=== PATIENT | male | born 1965 | race Two or more races ===

== ENCOUNTER 2017-07-02 16:34 | Emergency (ER) | payer OTHER ==
[~2017-07-02] VITALS: Ht 185.4 cm; Wt 88.6 kg
[2017-07-02 16:34] VITALS: BP 137/87
[2017-07-02] MEDS ORDERED: ADV500INH (16:41)
[2017-07-02] MEDS ORDERED: IPRASOL4 (16:41)
== END 2017-07-02 21:28 | disposition left against medical advice (07) ==
LOC: M ED 16:34
DX: R10.9 Unspecified abdominal pain (principal); Z53.21 Procedure and treatment not carried out due to patient leaving prior to being seen by health care provider

== ENCOUNTER → 2017-07-02 | Outpatient (CLI) | payer OTHER ==
[~2017-07-02] MED LIST: ADV500INH; IPRASOL4
--- NOTE | 2017-07-02 16:29 | REP ---
ABDOMINAL SERIES: Supine and erect views of the abdomen demonstrate no evidence of free intraperitoneal air and no evidence of bowel obstruction. No abnormal calcifications are seen. There are minor degenerative changes of the spine. An accompanying view of the chest demonstrates no acute infiltrate. Cardiomediastinal silhouette is unremarkable. IMPRESSION: Negative abdominal series. Signed by Trever Chambers MD 07/02/2017 05:23 P
== END ==
LOC: M LRY 15:02
PROVIDERS: ATTEND Nurse Practitioner Family
DX: R10.84 Generalized abdominal pain (principal)

== ENCOUNTER → 2017-09-21 | Day surgery (SDC) | payer OTHER ==
[~2017-09-21] VITALS: Ht 185.4 cm; Wt 85.3 kg
[~2017-09-21] MED LIST changes: +AZEL1SPR3; +CLAR10CA3 PO; +LIDOCAINE 2% INJ 100 MG/5 ML SDV (FOR ANES.) As Ordered ONE; +LR 1,000 ML IV ONE; +MULT1TAB28 PO; +PROPOFOL 200 MG/20 ML VIAL As Ordered ONE
--- NOTE | 2017-09-21 10:56 | ROOR ---
Patient Name: Ameya Davis Procedure Date: 09/21/2017 10:12 AM Date of : 1965 Age: 52 Room: [facility] Gender: Male Note Status: Finalized Procedure: Colonoscopy Indications: Screening in patient at increased risk: Colorectal cancer in father 60 or older, This is the patient's first colonoscopy Providers: Ilia Shabazz MD Referring MD: KRISTIN SULTANA MD Requesting Provider: Medicines: Monitored Anesthesia Care Complications: No immediate complications. Procedure: Pre-Anesthesia Assessment: - Prior to the procedure, a History and Physical was performed, and patient medications and allergies were reviewed. The patient is competent. The risks and benefits of the procedure and the sedation options and risks were discussed with the patient. All questions were answered and informed consent was obtained. Patient identification and proposed procedure were verified by the physician, the nurse and the field agronomist in the procedure room. Mental Status Examination: alert and oriented. Airway Examination: normal oropharyngeal airway and neck mobility. CV Examination: regular rate and rhythm. Prophylactic Antibiotics: The patient does not require prophylactic antibiotics. Prior Anticoagulants: The patient has taken no previous anticoagulant or antiplatelet agents. ASA Grade Assessment: I - A normal, healthy patient. After reviewing the risks and benefits, the patient was deemed in satisfactory condition to undergo the procedure. The anesthesia plan was to use monitored anesthesia care (MAC). Immediately prior to administration of medications, the patient was re-assessed for adequacy to receive sedatives. The heart rate, respiratory rate, oxygen saturations, blood pressure, adequacy of pulmonary ventilation, and response to care were monitored throughout the procedure. The physical status of the patient was re-assessed after the procedure. The Colonoscope was introduced through the anus and advanced to the cecum, identified by appendiceal orifice and ileocecal valve. The colonoscopy was performed without difficulty. The patient tolerated the procedure well. The quality of the bowel preparation was good. Findings: The perianal and digital rectal examinations were normal. A 15 mm polyp was found at 35 cm proximal to the anus. The polyp was pedunculated. The polyp was removed with a hot snare. Resection and retrieval were complete. The pathology specimen was placed into Bottle Number 1. Estimated blood loss: none. A 6 mm polyp was found at 30 cm proximal to the anus. The polyp was multi-lobulated. The polyp was removed with a hot snare. Resection and retrieval were complete. The pathology specimen was placed into Bottle Number 2. Estimated blood loss: none. Multiple medium-mouthed diverticula were found in the sigmoid colon. Impression: - One 15 mm polyp at 35 cm proximal to the anus, removed with a hot snare. Resected and retrieved. - One 6 mm polyp at 30 cm proximal to the anus, removed with a hot snare. Resected and retrieved. - Diverticulosis in the sigmoid colon. Recommendation: - Discharge patient to home. - Resume previous diet. - Continue present medications. - Await pathology results. - Telephone endoscopist for pathology results in 1 week. Ilia Shabazz MD 09/21/2017 10:56:33 AM Number of Addenda: 0 Note Initiated On: 09/21/2017 10:12 AM Estimated Blood Loss: Estimated blood loss: none.
[2017-09-21 11:20] VITALS: BP 119/80
== END | disposition home or self-care (01) ==
LOC: M OPP 08:23
PROVIDERS: ATTEND Surgery
DX: Z12.11 Encounter for screening for malignant neoplasm of colon (principal); Z80.0 Family history of malignant neoplasm of digestive organs; D12.5 Benign neoplasm of sigmoid colon; K57.30 Diverticulosis of large intestine without perforation or abscess without bleeding; M19.90 Unspecified osteoarthritis, unspecified site; J45.909 Unspecified asthma, uncomplicated; G47.30 Sleep apnea, unspecified; F17.220 Nicotine dependence, chewing tobacco, uncomplicated; Z79.899 Other long term (current) drug therapy

== ENCOUNTER → 2019-01-16 | Outpatient (REF) | payer OTHER ==
[~2019-01-16] MED LIST changes: +IPRA0.00; -IPRASOL4; -LIDOCAINE 2% INJ 100 MG/5 ML SDV (FOR ANES.) As Ordered ONE; -LR 1,000 ML IV ONE; -PROPOFOL 200 MG/20 ML VIAL As Ordered ONE
[2019-01-16 12:08] LABS: BASO # 0.1 10^3/uL (0.0-0.2); EOS # 0.6 10^3/uL (0.0-0.50); EOS % 8.4 % (0.0-3.0); HEMATOCRIT 47.8 % (42.0-52.0); HEMOGLOBIN 16.5 g/dl (13.5-17.5); LYMPH # 1.6 10^3/uL (1.5-4.5); LYMPH % 22.6 % (24.0-44.0); MEAN CORPUSCULAR HEMOGLOBIN 31.8 pg (27.0-33.0); MEAN CORPUSCULAR HGB CONC 34.5 g/dl (32.0-36.5); MEAN CORPUSCULAR VOLUME 92.1 fl (80.0-96.0); MONO # 0.8 10^3/uL (0.0-0.8); MONO % 11.7 % (0.0-5.0); NEUTROPHILS # 3.9 10^3/uL (1.8-7.7); PLATELET COUNT, AUTOMATED 217 10^3/uL (150-450); RED BLOOD COUNT 5.19 10^6/uL (4.30-6.10)
[2019-01-16 12:23] LABS: ALBUMIN 3.8 GM/DL (3.2-5.2); ALT/SGPT 49 U/L (12-78); BILIRUBIN,TOTAL 0.4 MG/DL (0.2-1.0); BLOOD UREA NITROGEN 17 MG/DL (7-18); CALCIUM LEVEL 8.5 MG/DL (8.5-10.1); CARBON DIOXIDE LEVEL 28 MEQ/L (21-32); CHLORIDE LEVEL 107 MEQ/L (98-107); CHOLESTEROL LEVEL 179 MG/DL (<200); CHOLESTEROL RISK RATIO 4.162 (<5); CREATININE FOR GFR 1.03 MG/DL (0.70-1.30); GLOMERULAR FILTRATION RATE > 60.0 (>56); GLUCOSE, FASTING 98 MG/DL (70-100); HDL CHOLESTEROL 43 MG/DL (>40); LDL CHOLESTEROL 97 MG/DL (<100); NON-HDL-C 136 MG/DL; POTASSIUM SERUM 3.8 MEQ/L (3.5-5.1); SODIUM LEVEL 139 MEQ/L (136-145); TOTAL PROTEIN 6.9 GM/DL (6.4-8.2); TRIGLYCERIDES LEVEL 197 MG/DL (<150)
== END ==
LOC: M LABDRAW1 11:37
PROVIDERS: ATTEND Physician Assistant
DX: R53.83 Other fatigue (principal); J45.30 Mild persistent asthma, uncomplicated

== ENCOUNTER → 2019-03-15 | Outpatient (CLI) | payer OTHER ==
--- NOTE | 2019-03-15 17:03 | REP ---
REASON: Dyspnea. COMPARISON: 06/26/2013 the latest prior. Mild patchy opacities have developed in the left lung base obscuring the left CP angle. The right CP angle is clear. The heart is borderline. The osseous structure is stable and intact. IMPRESSION: Patchy left basilar opacities, as described above, of uncertain etiology. I would recommend followup with chest CT. Electronically Signed by Meño Byrnes DO 03/16/2019 04:23 P
== END ==
LOC: M SMT 15:55
PROVIDERS: ATTEND Nurse Practitioner Family
DX: R91.8 Other nonspecific abnormal finding of lung field (principal); R06.00 Dyspnea, unspecified

== ENCOUNTER → 2019-03-15 | Outpatient (CLI) | payer OTHER ==
[2019-03-15 18:39] LABS: FREE T4 0.98 NG/DL (0.76-1.46); THYROID PEROXIDASE ANTIBODY > 1300.0 U/ML (<60.0)
== END ==
LOC: M SMT 15:50
PROVIDERS: ATTEND Physician Assistant
DX: E03.9 Hypothyroidism, unspecified (principal)

== ENCOUNTER → 2019-03-29 | Outpatient (CLI) | payer OTHER ==
--- NOTE | 2019-03-29 14:59 | REP ---
CT of the chest without IV contrast: Comparison is 10/28/2007. Addition there is a recent PA and lateral plain film dated 03/15/2019 that identified patchy left basilar opacities. There are no infiltrates. There are no pleural effusions. There are no masses. There are no nodules. 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 There are small subpleural blebs adjacent to this synostosis. The There is no mediastinal lymph node enlargement. The azygos node is normal size measuring up to 10 mm short axis. There is no axillary lymph node enlargement. The unenhanced thoracic aorta is unremarkable. The cardiac size is normal. The visualized upper abdominal contents are unremarkable. Impression: There are no infiltrates or pleural effusions. There are no masses or nodules. 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 There are small blebs adjacent to this anastomosis. Electronically Signed by Trever Merritt MD 03/29/2019 02:51 P
== END ==
LOC: M RAD 14:19
PROVIDERS: ATTEND Nurse Practitioner Family
DX: R06.00 Dyspnea, unspecified (principal); R91.8 Other nonspecific abnormal finding of lung field

== ENCOUNTER → 2019-09-22 | Outpatient (REF) | payer OTHER ==
[2019-09-22 18:38] LABS: FREE T4 0.96 NG/DL (0.76-1.46); THYROID STIMULATING HORMONE 3.03 uIU/ML (0.358-3.740)
== END ==
LOC: M LABDRAW1 15:32
PROVIDERS: ATTEND Physician Assistant
DX: E03.9 Hypothyroidism, unspecified (principal)

== ENCOUNTER → 2019-10-19 | Outpatient (CLI) | payer OTHER ==
[~2019-10-19] MED LIST changes: +METHACHOLINE KIT (J7674) INH ONE
--- NOTE | 2019-10-19 14:20 | PFTRPT ---
Site: [facility], [address] [place], [place], [address] ID: [id number] Name: SURYA SULLIVAN Visit Date: 10/19/2019 Second ID: [id number] Referring Doctor: SANDRITA SCOTT Reviewing Doctor: Lenin Hernandez MD [employer] Consultant: Vangie TEIXEIRA RRT Age: 54 : 1965 Sex: Male Race: Height: 73.00 Inches Weight: 198.00 Lbs BSA: 2.14 Order IDs: [id number] Requested Test(s): <RESP-PFT.METH CHAL> Diagnosis: R05 of albuterol for postbronchodilator. Review Status: Not Reviewed Pre-Bronch Post-Bronch Pred Actual %Pred Actual %Chng SPIROMETRY FVC (L) 5.50 4.75 86 4.54 -4 FEV1 (L) 4.23 2.51 59 2.41 -3 FEV1/FVC (%) 77 53 68 53 FEF 25% (L/sec) 7.91 2.82 35 2.71 -4 FEF 50% (L/sec) 4.66 1.44 30 1.30 -9 FEF 75% (L/sec) 1.66 0.50 30 0.46 -8 FEF 25-75% (L/sec) 3.62 1.20 33 1.07 -10 FEF Max (L/sec) 10.38 5.71 55 4.37 -23 FIVC (L) 4.55 4.12 -9 FIF 50% (L/sec) 4.91 5.65 115 7.10 25 FIF Max (L/sec) 5.92 7.14 20 Expiratory Time (sec) 7.94 6.69 -15 Back Extrap Vol (L) 0.06 0.14 132 Time To FEFmax (sec) 0.063 0.116 83
== END ==
LOC: M CARPUL 13:16
PROVIDERS: ATTEND Nurse Practitioner Family
DX: R05 Cough (principal)
CPT/HCPCS: 94070; J7674

== ENCOUNTER → 2019-10-24 | Outpatient (CLI) | payer OTHER ==
[~2019-10-24] MED LIST changes: -METHACHOLINE KIT (J7674) INH ONE
== END ==
LOC: M RAD 14:12
PROVIDERS: ATTEND Nurse Practitioner Family
DX: R91.8 Other nonspecific abnormal finding of lung field (principal)

== ENCOUNTER → 2019-11-22 | Outpatient (REF) | payer OTHER ==
[2019-11-22 16:02] LABS: MUCIN CLOT TEST NO CLOT (4+)
[2019-11-22 16:12] LABS: SOURCE, BODY FLUID GLUCOSE LFT KNEE; SOURCE, BODY FLUID URIC ACID LFT KNEE; URIC ACID, BODY FLUID 0.9 MG/DL (NOT ESTABLISHED)
[2019-11-22 16:17] LABS: SOURCE, BODY FLUID LFT KNEE; SYNOVIAL FLUID COLOR PINK (YELLOW)
[2019-11-22 16:49] LABS: CRYSTALS, BODY FLUID NONE SEEN (NONE SEEN); SOURCE, BODY FLUID CRYSTALS LFT KNEE
[2019-11-23 08:20] LABS: BODY FLUID RHEUMATOID SCREEN NEGATIVE (NEGATIVE)
== END ==
LOC: M LAB REF 15:29
PROVIDERS: ATTEND Physician Assistant
DX: M25.462 Effusion, left knee (principal)

== ENCOUNTER → 2019-11-22 | Outpatient (CLI) | payer OTHER ==
[2019-11-22 12:35] LABS: BASO # 0.1 10^3/uL (0.0-0.2); BASO % 0.4 % (0.0-1.0); EOS # 0.3 10^3/uL (0.0-0.5); EOS % 2.1 % (0.0-3.0); HEMATOCRIT 50.1 % (42.0-52.0); HEMOGLOBIN 17.5 g/dl (13.5-17.5); LYMPH # 1.2 10^3/uL (1.5-5.0); LYMPH % 7.9 % (24.0-44.0); MEAN CORPUSCULAR HEMOGLOBIN 32.6 pg (27.0-33.0); MEAN CORPUSCULAR HGB CONC 34.9 g/dl (32.0-36.5); MEAN CORPUSCULAR VOLUME 93.3 fl (80.0-96.0); MONO # 1.9 10^3/uL (0.0-0.8); MONO % 13.4 % (0.0-5.0); NEUTROPHILS % 75.9 % (36.0-66.0); PLATELET COUNT, AUTOMATED 219 10^3/uL (150-450); RED BLOOD COUNT 5.37 10^6/uL (4.30-6.10); WHITE BLOOD COUNT 14.5 10^3/uL (4.0-10.0)
[2019-11-22 12:56] LABS: ERYTHROCYTE SEDIMENTATION RATE 6 mm/hr (0-20)
== END ==
LOC: M WUC 09:58
PROVIDERS: ATTEND Physician Assistant
DX: M25.562 Pain in left knee (principal)

== ENCOUNTER → 2020-04-02 | Outpatient (CLI) | payer OTHER ==
[2020-04-02 11:09] LABS: BASO # 0.1 10^3/uL (0.0-0.2); BASO % 0.9 % (0.0-1.0); EOS # 0.6 10^3/uL (0.0-0.5); EOS % 9.5 % (0.0-3.0); HEMATOCRIT 49.5 % (42.0-52.0); HEMOGLOBIN 17.4 g/dl (13.5-17.5); LYMPH # 1.5 10^3/uL (1.5-5.0); LYMPH % 22.9 % (24.0-44.0); MEAN CORPUSCULAR HEMOGLOBIN 32.2 pg (27.0-33.0); MEAN CORPUSCULAR HGB CONC 35.2 g/dl (32.0-36.5); MEAN CORPUSCULAR VOLUME 91.5 fl (80.0-96.0); MONO # 0.7 10^3/uL (0.0-0.8); NEUTROPHILS # 3.7 10^3/uL (1.5-8.5); NEUTROPHILS % 55.4 % (36.0-66.0); PLATELET COUNT, AUTOMATED 215 10^3/uL (150-450); RED BLOOD COUNT 5.41 10^6/uL (4.30-6.10); WHITE BLOOD COUNT 6.7 10^3/uL (4.0-10.0)
[2020-04-02 11:43] LABS: ALBUMIN 3.8 GM/DL (3.2-5.2); ALT/SGPT 58 U/L (12-78); BILIRUBIN,TOTAL 0.6 MG/DL (0.2-1.0); BLOOD UREA NITROGEN 14 MG/DL (7-18); CALCIUM LEVEL 8.9 MG/DL (8.5-10.1); CARBON DIOXIDE LEVEL 27 MEQ/L (21-32); CHLORIDE LEVEL 106 MEQ/L (98-107); CHOLESTEROL LEVEL 175 MG/DL (<200); CHOLESTEROL RISK RATIO 3.977 (<5); CREATININE FOR GFR 0.92 MG/DL (0.70-1.30); FREE T4 0.99 NG/DL (0.76-1.46); GLOMERULAR FILTRATION RATE > 60.0 (>56); GLUCOSE, FASTING 81 MG/DL (70-100); HDL CHOLESTEROL 44 MG/DL (>40); LDL CHOLESTEROL 103 MG/DL (<100); NON-HDL-C 131 MG/DL; POTASSIUM SERUM 4.4 MEQ/L (3.5-5.1); SODIUM LEVEL 139 MEQ/L (136-145); TOTAL PROTEIN 7.1 GM/DL (6.4-8.2); TRIGLYCERIDES LEVEL 138 MG/DL (<150)
== END ==
LOC: M WUC 08:07
PROVIDERS: ATTEND Physician Assistant
DX: E03.9 Hypothyroidism, unspecified (principal); J45.30 Mild persistent asthma, uncomplicated; E78.2 Mixed hyperlipidemia

== ENCOUNTER → 2020-10-30 | Outpatient (CLI) | payer OTHER ==
--- NOTE | 2020-10-30 08:56 | REP ---
INDICATION: MODERATE PERSISTENT ASTHMA COMPARISON: 03/15/2019 TECHNIQUE: PA and lateral. FINDINGS: The mediastinum and cardiac silhouette are normal. The lung alvarado demonstrate chronic stable changes without acute consolidation, effusion, or pneumothorax. The skeletal structures are intact and normal. IMPRESSION: No focal consolidation or effusion appreciated. <Electronically signed by Javier Tran > 10/30/20 [id number]
== END ==
LOC: M WUC 08:06
PROVIDERS: ATTEND Nurse Practitioner Family
DX: J45.40 Moderate persistent asthma, uncomplicated (principal)

== ENCOUNTER → 2024-04-03 | Outpatient (CLI) | payer OTHER ==
[2024-04-03 08:37] LABS: BASO # 0.1 10^3/uL (0.0-0.2); BASO % 0.9 % (0.0-1.0); EOS # 0.6 10^3/uL (0.0-0.5); HEMATOCRIT 48.1 % (42.0-52.0); HEMOGLOBIN 16.7 g/dl (13.5-17.5); LYMPH # 1.6 10^3/uL (1.5-5.0); MEAN CORPUSCULAR HEMOGLOBIN 31.8 pg (27.0-33.0); MEAN CORPUSCULAR HGB CONC 34.7 g/dl (32.0-36.5); MEAN CORPUSCULAR VOLUME 91.6 fl (80.0-96.0); MONO # 0.9 10^3/uL (0.0-0.8); MONO % 12.3 % (2.0-8.0); NEUTROPHILS # 4.3 10^3/uL (1.5-8.5); NEUTROPHILS % 57.5 % (36.0-66.0); PLATELET COUNT, AUTOMATED 206 10^3/uL (150-450); RED BLOOD COUNT 5.25 10^6/uL (4.30-6.10); WHITE BLOOD COUNT 7.5 10^3/uL (4.0-10.0)
[2024-04-03 09:02] LABS: ALBUMIN 3.7 G/DL (3.2-5.2); ALKALINE PHOSPHATASE 86 U/L (46-116); ALT/SGPT 47 U/L (7.0-40); AST/SGOT 14 U/L (<34); BILIRUBIN,TOTAL 0.7 MG/DL (0.3-1.2); BLOOD UREA NITROGEN 13 MG/DL (9-23); CALCIUM LEVEL 9.1 MG/DL (8.5-10.1); CARBON DIOXIDE LEVEL 28 MMOL/L (20-31); CHLORIDE LEVEL 107 MMOL/L (98-107); CHOLESTEROL LEVEL 170 MG/DL (<200); CHOLESTEROL RISK RATIO 4.22 (<5); CREATININE FOR GFR 1.02 MG/DL (0.70-1.30); GLOMERULAR FILTRATION RATE > 60.0 (>56); GLUCOSE, FASTING 99 MG/DL (60-100); HDL CHOLESTEROL 40.2 MG/DL (>40); NON-HDL-C 129.8 MG/DL; SODIUM LEVEL 141 MMOL/L (136-145); TOTAL PROTEIN 6.6 G/DL (5.7-8.2); TRIGLYCERIDES LEVEL 129 MG/DL (<150)
[2024-04-03 09:04] LABS: THYROID STIMULATING HORMONE 5.215 uIU/ML (0.55-4.78)
[2024-04-03 09:15] LABS: TOTAL 25(OH) VITAMIN D 61.6 NG/ML (20.0-100.0)
== END ==
LOC: M LAB 07:52
PROVIDERS: ATTEND Physician Assistant
DX: E03.9 Hypothyroidism, unspecified (principal)

== ENCOUNTER → 2024-08-04 | Outpatient (CLI) | payer OTHER | LOC: M WUC 14:33 | PROVIDERS: ATTEND Physician Assistant | DX: E03.9 Hypothyroidism, unspecified (principal) ==

== ENCOUNTER → 2024-12-12 | Outpatient (REF) | payer OTHER ==
[~2024-12-12] MED LIST changes: -ADV500INH; +ADVA1AER10
[2024-12-12 14:30] LABS: THYROID STIMULATING HORMONE 5.283 uIU/ML (0.55-4.78)
[2024-12-12 14:33] LABS: ALBUMIN 3.9 G/DL (3.2-5.2); ALKALINE PHOSPHATASE 81 U/L (40-129); ALT/SGPT 49 U/L (7.0-40); AST/SGOT 23 U/L (<34); BILIRUBIN,TOTAL 0.6 MG/DL (0.3-1.2); BLOOD UREA NITROGEN 17 MG/DL (9-23); CALCIUM LEVEL 9.5 MG/DL (8.5-10.1); CARBON DIOXIDE LEVEL 26 MMOL/L (20-31); CHLORIDE LEVEL 107 MMOL/L (98-107); CHOLESTEROL LEVEL 200 MG/DL (<200); CHOLESTEROL RISK RATIO 3.97 (<5); CREATININE FOR GFR 0.94 MG/DL (0.70-1.30); GLOMERULAR FILTRATION RATE > 60.0 (>56); GLUCOSE, FASTING 100 MG/DL (60-100); HDL CHOLESTEROL 50.3 MG/DL (>40); LDL CHOLESTEROL 121.1 MG/DL (<100); NON-HDL-C 149.7 MG/DL; POTASSIUM SERUM 4.9 MMOL/L (3.5-5.1); SODIUM LEVEL 143 MMOL/L (136-145); TOTAL PROTEIN 7.3 G/DL (5.7-8.2); TRIGLYCERIDES LEVEL 143 MG/DL (<150)
== END ==
LOC: M LAB REF 12:16
PROVIDERS: ATTEND Physician Assistant
DX: E03.9 Hypothyroidism, unspecified (principal); E78.5 Hyperlipidemia, unspecified